=== PATIENT | male | born 2000 | race Hispanic/Latino ===

== ENCOUNTER 2024-11-22 16:02 | Emergency (ER) | payer OTHER ==
[~2024-11-22] VITALS: Ht 165.1 cm; Wt 78.9 kg
[2024-11-22 16:04] VITALS: BP 141/79; PULSE 58; RESP 16; TEMP 98.2
--- NOTE | 2024-11-22 16:18 | ERN ---
ED Note History of Present Illness Stated Complaint: RT 2ND FINGER LACERATION Chief Complaint: Finger Injury Time Seen by MD: 16:12 Dictation: PATIENT IS A 24-YEAR-OLD MALE HERE WITH A POSSIBLE SKIN AVULSION TO THE DORSUM OF THE RIGHT 2ND FINGER WHILE HE WAS AT WORK. 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 HE SAID IT WOULD NOT STOP BLEEDING SO HE WENT TO A LOCAL URGENT CARE. HE SAID THEY TOLD HIM THEY COULD EITHER CAUTERIZE IT OR GLUE IT HOWEVER THEY DID NEITHER AND TOLD HIM TO GO AHEAD AND COME TO THE EMERGENCY ROOM SINCE THEY DID KNOW WHAT THEY WERE DOING. TETANUS SHOT IS NOT UP-TO-DATE. NO PAIN Allergies: Coded Allergies: No Known Drug Allergies (Unverified Allergy, Unknown, 11/22/24) Past Medical History Past Medical History: No Pertinent History Surgical History: None RN Note Reviewed/Agreed w/PFSH: Yes Review of System Dictation CONSTITUTIONAL: Negative except for HPI HEAD/FACE: Negative except for HPI EENT: Negative except for HPI RESPIRATORY: Negative except for HPI GASTROINTESTINAL/ABDOMINAL: Negative except for HPI GENITOURINARY: Negative except for HPI MUSCULOSKELETAL: Negative except for HPI INTEGUMENTARY: Negative except for HPI skin avulsion to distal phalanx right 2nd finger NEUROLOGICAL/PSYCH: Negative except for HPI HEMATOLOGIC/LYMPHATIC: Negative except for HPI All Systems Negative, Except as noted above. 13 point review of systems assessed and all negative except for above. Initial Vital Sign VS Vital Signs Date Time Temp Pulse Resp B/P (MAP) Pulse Ox O2 Delivery O2 Flow Rate FiO2 11/22/24 16:04 98.2 58 16 141/79 97 Room Air 0 Physical Exam Dictation Vital Signs reviewed General Appearance: Alert, oriented x 3, mild, refused p.r.n. analgesia acute distress, well developed, nourished. Head and Face: non-traumatic. Eyes: PERRL, pink conjunctivas, eyelid no trauma, anterior chamber with arcus senilis. Ears: Pinnas intact and no signs of trauma or erythema ear canals clear and no discharge TM no erythema Nose: No discharge, no bleeding. Oropharynx: Mouth normal, tongue pink, pharynx clear,no erythema, tonsils no exudates, no abscesses noted, mucous membrane moist Neck: Supple, non-tender, no thyromegaly, no masses, no JVD, no bruits Breast:Deferred Chest:No tenderness, no crepitus, no paradoxical movement, no retractions Lungs:Clear, well-ventilated, symmetric, no rales, no wheezing, no rhonchi, no stridor, good breath sounds bilaterally Heart: Regular rate, regular rhythm, no murmur, no gallops Vascular: no peripheral edema, Abdomen: Soft, positive bowel sounds, nondistended, no guarding, nontender, no rebound, no masses no hepatomegaly, no splenomegaly, no Rodriguez's sign, no hernias. Rectal: Deferred Genital: Deferred Neurological: Normal speech, motor function intact, sensory function intact Musculoskeletal: Neck nontender, full range of motion, back nontender, full range of motion, Extremities: nontender, full range of motion Skin: Color pink, skin avulsion to dorsal aspect of distal phalanx right 2nd finger. No repair possible Lymphatic: Deferred Results (Laboratory/Radiology) Labs Reviewed?: Yes ED Course ED Course Vital Signs Date Time Temp Pulse Resp B/P (MAP) Pulse Ox O2 Delivery O2 Flow Rate FiO2 11/22/24 16:04 98.2 58 16 141/79 97 Room Air 0 1725/patient in his made aware that there was no repair possible for skin avulsion. Quick clot and pressure dressing we will be applied patient will be given prophylactic antibiotics and told to see his primary care doctor tomorrow Medical Decision Making MDM Medical decision-making based on empiric treatment for skin avulsion to index finger. No repair possible and quick clot with pressure dressing applied Tetanus shot was updated Patient was placed on prophylactic antibiotics and told to see his primary care doctor tomorrow. DX & DISP Disposition: Discharge Departure Impression: Primary Impression: Avulsion of skin of index finger Condition: Stable Scripts Cephalexin (Cephalexin) 500 Mg Tablet 1 TAB PO TID for 10 Days, #30 TAB 0 Refills Prov: DOROTEO MARCUM [employer] 11/22/24 Additional Instructions: Follow-up with primary care provider in 1 to 2 days. Take medications as directed here in the emergency room. Okay to continue home medications unless otherwise discussed during your visit in the emergency room today. Return to your nearest emergency room if symptoms worsen or if there is no improvement. Call 911 if you need immediate assistance. Take Tylenol or Motrin [id number] as needed and if no contraindications are present. Increase oral hydration. A wound culture or urine culture was ordered here in the emergency room department please follow-up with primary care provider and advise them to get repeat ports from our facility. If you had any Toan wrap/splints that were applied here, please do not remove them until you see your primary care or specialty. Maintain dressing to right index finger until seen by your primary care doctor tomorrow keep the dressing clean and dry. Take antibiotics as directed until gone. No work with right hand until cleared by your primary care doctor or industrial medicine physician Referrals: SELF,REFERRAL (PCP) Time of Disposition: 17:27 I have reviewed the case, and I agree with, Diagnosis and Plan DOROTEO MARCUM [employer] Nov 22, 2024 16:18
[2024-11-22] MEDS ORDERED: CEPH500T PO (17:27)
== END 2024-11-22 17:46 | disposition home or self-care (01) ==
LOC: EDH 16:02
DX: S61.200A Unspecified open wound of right index finger without damage to nail, initial encounter (principal); W45.8XXA Other foreign body or object entering through skin, initial encounter; Y93.89 Activity, other specified; Y92.89 Other specified places as the place of occurrence of the external cause; Y99.8 Other external cause status
CPT/HCPCS: 99283